=== PATIENT | male | born 1965 | race American Indian/Alaskan Native ===

== ENCOUNTER 2018-09-25 11:58 | Day surgery (SDC) | payer OTHER ==
--- NOTE | 2018-09-25 12:52 | Anesthesia Consultation ---
Anesthesia Consult and Med Hx Date of service: 09/25/18 - Airway Anesthetic Teeth Evaluation: Dentures ROM Head & Neck: Adequate Mental/Hyoid Distance: Adequate Mallampati Class: Class II - Pulmonary Exam CTA: Yes - Cardiac Exam Cardiac Exam: RRR - Pre-Operative Health Status ASA Pre-Surgery Classification: ASA2 Proposed Anesthetic Plan: MAC - Cardiovascular System Hx Hypertension: No
--- NOTE | 2018-09-25 12:53 | Anesthesia Day of Surgery ---
Anesthesia Day of Surgery - Day of Surgery Patient Examined: Yes Patient H&P Reviewed: Yes Patient is NPO: Yes
[2018-09-25] MEDS ORDERED: NACL 0.9% 1000 ML 1,000 ML IV SCH (13:00)
[2018-09-25] MEDS ORDERED: DIPRIVAN 10 MG/ML IV ONE (13:34)
--- NOTE | 2018-09-25 14:08 | Procedure Note ---
Date of procedure: 09/25/18 Pre-op diagnosis: Colon Polyp Screening Post-op diagnosis: other Procedure: Colonoscopy and Cold Snare Polypectomy Anesthesia: DORYS Surgeon: LORRI DE LA FUENTE Estimated blood loss: minimal Pathology: list Specimen disposition: to lab Condition: stable Disposition: same day (Resume home medication but avoid aspirin and NSAID for 5 days. follow up in 1 to 2 weeks ([phone]).)
[2018-09-25 14:44] VITALS: BP 137/97
--- NOTE | 2018-09-25 16:44 | Operative Report ---
PROCEDURE: Colonoscopy and cold snare polypectomy. INDICATIONS: The patient is a 53-year-old -[place] gentleman who has come for colon polyp screening. DESCRIPTION OF PROCEDURE: Procedure was done after getting informed consent with MAC anesthesia. Initial rectal exam was unremarkable. Instrument was passed through the rectum onto the cecum, which was identified by the ileocecal valve and the appendiceal orifice. Visualization was fair to good. Scope was retroflexed in the cecum. No additional pathology was noted. The scope was then withdrawn from the cecum and on to the rectum. The cecum, ascending colon, transverse colon, descending colon, and sigmoid showed normal mucosa. During the time of insertion of the rectosigmoid area, there was a 10 mm sessile polyp noted that was removed by cold snare polypectomy and retrieved by suction and the rectum showed mild internal hemorrhoids on the retroverted view. There was minimal bleeding from the polypectomy site. No complications associated with the procedure. ASSESSMENT: Colon polyp screening solitary rectosigmoid polyp, which was snare excised. Minor internal hemorrhoid. Plan is to have the patient to resume previous home medication, but avoid aspirin and aspirin-related products for the next 5 days and follow up in the office in 1-2 weeks' time. Again, there was minimal bleeding and no complications associated with the procedure. Procedure was done in the presence of RN, Karely Mak. JOB# [id number] JOSH/NILESH
== END 2018-09-25 11:59 | disposition home or self-care (01) ==
LOC: GIO 11:58
DX: Z12.11 Encounter for screening for malignant neoplasm of colon (principal); D12.7 Benign neoplasm of rectosigmoid junction; I10 Essential (primary) hypertension; K64.8 Other hemorrhoids; Z98.890 Other specified postprocedural states; Z79.899 Other long term (current) drug therapy
CPT/HCPCS: 45385; 88305; J2704; J7030